=== PATIENT | male | born 1960 | race Hispanic/Latino ===

== ENCOUNTER → 2017-09-04 | Day surgery (SDC) | payer OTHER ==
[~2017-09-04] MED LIST: AMBIEN10 MG PO; BUPIVACAINE HCL 0.5% 10ML MPF VIAL INJ ONE; CEFAZOLIN SOD 1 GM VIAL ONE; CRESTOR10 MG PO; DEXAMETHASONE SOD PHOS INJ 4 MG/ML VIAL ONE; FENTANYL CITRATE/PF 100MCG/2 ML INJ ONE; GLUCOSAMINE1000 MG PO; LIDOCAINE HCL 2% LOCAL INJ 5 ML SDV VIAL INJ ONE; LOSARTAN POTAS100 MG PO; MIDAZOLAM HCL 2 MG/2 ML VIAL ONE; NORCO 7.5-3251 EACH PO; ONDANSETRON HCL INJ 2 MG/ML VIAL ONE; PROPOFOL IV EMULSION 10 MG/ML 20 ML VIAL ONE; SEVOFLURANE INHAL SOLN 250 ML PEN BTL ONE; VIT D3 PO
--- NOTE | 2017-09-04 13:19 | Operative Report ---
DATE OF PROCEDURE: September 04, 2017 PREOPERATIVE DIAGNOSES 1. Hallux rigidus right foot. 2. Heel spur left foot. POSTOPERATIVE DIAGNOSES 1. Hallux rigidus right foot. 2. Heel spur left foot. PLANNED PROCEDURES: 1. Cheilectomy of the right foot. 2. Injection steroid left heel spur. SURGEON: Dr. Neftali GOLDBERG GUIDE DOG MOBILITY INSTRUCTOR: Fela Rogel DPM ANESTHESIA: General with a postoperative block consisting of 10 mL of 0.5% Marcaine plain mixed with 1 mL of dexamethasone phosphate to the right and 1 mL of dexamethasone phosphate to the left. HEMOSTASIS: Pneumatic thigh tourniquet to the right lower extremity set for approximately 30 minutes. ESTIMATED BLOOD LOSS: Less than 10 mL. MATERIAL: 2-0 Vicryl, 3-0 Vicryl, 4-0 Prolene. PATHOLOGY: None. DETAILS OF PROCEDURE: Patient was seen in the preoperative waiting room where the correct procedure and site was identified. The patient was brought to the operating room, placed on the table in supine position. General anesthesia was initiated at this time. A well-padded pneumatic tourniquet was placed about the patient's right thigh. The right foot, ankle, leg was scrubbed, prepped and draped in usual aseptic manner. The right foot, ankle and leg was exsanguinated with an Esmarch bandage and the pneumatic thigh tourniquet was inflated to 350 mmHg for a total time of approximately 30 minutes. Attention was directed to the dorsomedial aspect of the patient's right 1st metatarsophalangeal joint. The incision was carried through the subcutaneous tissue it from deeper underlying structures. All vital neurovascular structures were identified, retracted medially and laterally and all bleeders were cauterized or ligated as deemed necessary. At this time a linear capsulotomy was performed at the level of 1st metatarsophalangeal joint to allow for good visualization. Through the same incision a full lateral release was performed consisting of the deep transverse metatarsal ligament and lateral collateral ligament as well as the fibular sesamoid ligament. The hallux was then put through range of motion and found to be functioning in a more proper anatomic alignment. It should be noted that upon examination of 1st metatarsophalangeal joint a large osteochondral defect was noted to the distal lateral aspect of the right 1st metatarsal head. It was approximately 20% of the metatarsal head. Utilizing a 0.45 K-wire subchondral drilling was performed to promote the growth of fibrocartilage. Next, utilizing a sagittal saw, the dorsal medial and lateral eminences of the 1st metatarsal head were resected, passed off to the back table and the head was shaped to anatomic alignment utilizing an Egg bur. Next, utilizing a sagittal saw the dorsal lip was excised off the base of the proximal phalanx and again smoothed to anatomic alignment utilizing an Egg bur. The wound was then flushed with copious amounts of sterile saline. Capsular deep tissue were reapproximated with 2-0 Vicryl subcutaneous suture with 3-0 Vicryl and the skin was closed using a running interlocking stitch with 4-0 Prolene. The incision site was dressed with Adaptic, 4 x 4s, Kerlix, Michael wrap and a postop shoe. Attention was then directed to the medial plantar aspect of the patient's left heel where administration of a steroid injection was performed under sterile technique to the left heel spur. The incision site was dressed with a Band-aid. Patient tolerated procedure and anesthesia well. Patient was transferred to postoperative recovery unit with vital signs stable and vascular status intact. Patient was monitored there for a short period time before being sent home with follow written instructions: 1. Keep the dressing clean, dry and intact. 2. The patient is to remain partial weightbearing to postop shoe to the right lower extremity to avoid any excessive ambulation until being seen in the office. 3. Patient was given the office number to contact us if any problems arise. Job#: [id number] YESY
== END | disposition home or self-care (01) ==
LOC: OR 05:38
PROVIDERS: ATTEND Podiatrist Foot & Ankle Surgery
DX: M20.21 Hallux rigidus, right foot (principal); M77.32 Calcaneal spur, left foot; I10 Essential (primary) hypertension; R00.1 Bradycardia, unspecified; E78.00 Pure hypercholesterolemia, unspecified; Z01.810 Encounter for preprocedural cardiovascular examination
CPT/HCPCS: 28289; 93005; 96372; J0690; J1100; J2001; J2250; J2405

== ENCOUNTER → 2017-09-27 | Day surgery (SDC) | payer OTHER ==
[~2017-09-27] MED LIST changes: -BUPIVACAINE HCL 0.5% 10ML MPF VIAL INJ ONE; +BUPIVACAINE HCL 0.5% INJ 30 ML VIAL INJ ONE
[2017-09-27 06:07] LABS: BASOPHILS % 0.5 % (0.0-1.0); EOSINOPHILS # (AUTO) 0.1 (0.0-0.4); EOSINOPHILS % 0.9 % (0.0-6.0); HEMATOCRIT 44.6 % (38.2-49.6); HEMOGLOBIN 15.5 g/dL (14.0-18.0); LYMPHOCYTES % 24.9 % (18.0-39.1); MEAN CORPUSCULAR HEMOGLOBIN 30.6 pg (28-32); MEAN CORPUSCULAR HGB CONC 34.8 g/dL (31-35); MEAN CORPUSCULAR VOLUME 88.1 fL (81-99); MONOCYTES # (AUTO) 0.6 (0.2-0.8); NEUTROPHILS # (AUTO) 5.1 (2.1-6.9); NEUTROPHILS % 65.2 % (38.7-80.0); PLATELET COUNT 182 x10e3/uL (140-360); RED BLOOD COUNT 5.06 x10e6/uL (4.3-5.7); RED CELL DISTRIBUTION WIDTH 12.4 % (11.7-14.4)
--- NOTE | 2017-10-02 08:45 | Operative Report ---
DATE OF PROCEDURE: September 27, 2017 PREOPERATIVE DIAGNOSES 1. Right foot sesamoiditis. 2. Left foot heel spur. POSTOPERATIVE DIAGNOSES 1. Right foot sesamoiditis. 2. Left foot heel spur. PLANNED PROCEDURES 1. Excision of right foot sesamoid. 2. Left foot heel spur excision. SURGEON: Dr. Neftali DPM FAMILY SERVICES WORKER: Fela Aguilar DPM ANESTHESIA: General with a postoperative block consisting of 10 mL of 0.5% Marcaine plain mixed with 1 mL of dexamethasone phosphate per foot. ESTIMATED BLOOD LOSS: Less than 10 mL. HEMOSTASIS: Pneumatic thigh tourniquet applied bilaterally for approximately 15 minutes per foot. PATHOLOGY: None. MATERIALS: 3-0 Vicryl, 1 TLS drain, 4-0 Prolene. DETAILS OF PROCEDURE: Patient was seen in the preoperative waiting room where the correct procedure and site was identified. The patient was brought to the operating room and placed on the operating table in the supine position. General anesthesia was initiated at this time. A well-padded pneumatic thigh tourniquet was applied to bilateral lower extremities. Bilateral lower extremities were scrubbed, prepped and draped in the usual aseptic manner. The tourniquet was inflated to the right foot at 350 mmHg for a total time of approximately 15 minutes. PROCEDURE #1: Excision of right foot sesamoid. Attention was directed to the medial aspect of the patient's right 1st metatarsophalangeal joint where a 3.5 cm linear incision was made on the medial aspect of the 1st MPJ slightly plantar. The incision was carried through subcutaneous tissues them from deeper underlying structures. All vital neurovascular structures were identified and retracted dorsally and plantarly, and all bleeders were cauterized or ligated as deemed necessary. A linear capsulotomy was performed at this time to allow for good visualization of the medial sesamoid. Utilizing a sharp 15 blade and Jax, the medial sesamoid was dissected free from all capsular and ligamentous attachments and passed off to the back table. Care was taken to ensure that the flexor hallucis longus tendon was intact. The wound was flushed with copious amounts of sterile saline. Capsule and deep tissue were reapproximated with 2-0 Vicryl, subcutaneous tissue with 3-0 Vicryl and the skin was closed using a running interlocking stitch with 4-0 Prolene. The incision site was then dressed with Adaptic, 4 x 4s, Kerlix, Michael wrap, and a postop shoe. The right foot tourniquet was deflated. The left foot was then exsanguinated with an Esmarch bandage, and a left thigh tourniquet was inflated for approximately 15 minutes. PROCEDURE #2: Left heel spur excision. Attention was directed to the plantar medial aspect of the patient's left heel where a 4 cm linear incision was made. Incision was carried through the subcutaneous tissues them from deeper underlying structures. All vital neurovascular structures were identified and retracted dorsally and plantarly. Utilizing curved Metzenbaum scissors, the plantar fascia was easily identified and was cut approximately one-third to one-half along the plantar aspect of the foot. At this point, the heel spur was easily identified. Utilizing an osteotome and mallet, the majority of the heel spur was resected and passed off to the back table. Next, utilizing a rongeur and a rasp, the bone was smoothed to anatomic alignment and this was confirmed via intraoperative fluoroscopy. The wound was then flushed with copious amounts of sterile saline. Per spice mixer protocol, one TLS drain was placed. Deep tissue was reapproximated with 2-0 Vicryl and subcutaneous tissue with 3-0 Vicryl. The skin was closed using a running interlocking stitch with 4-0 Prolene. Incision site was then dressed with Adaptic, 4 x 4s, Kerlix, Michael wrap, and a postop shoe. The patient tolerated both the procedure and anesthesia well. Patient is transferred to the postoperative recovery room with vital signs stable and vascular status intact. Patient is to remain partial weightbearing to the right lower extremity and nonweightbearing to the left lower extremity until being seen in the office by Dr. Lindsay. Patient was given the office number and instructed to contact us if any problems should arise. DICTATED BY FELA AGUILAR DPM Job#: [id number] STEPHANIE
== END | disposition home or self-care (01) ==
LOC: OR 05:09
PROVIDERS: ATTEND Podiatrist Foot & Ankle Surgery
DX: M77.32 Calcaneal spur, left foot (principal); M25.871 Other specified joint disorders, right ankle and foot; S92.811A Other fracture of right foot, initial encounter for closed fracture; X58.XXXA Exposure to other specified factors, initial encounter; I10 Essential (primary) hypertension; E78.5 Hyperlipidemia, unspecified; E78.00 Pure hypercholesterolemia, unspecified
CPT/HCPCS: 28119; 28315; 36415; 85025; J0690; J1100; J2001; J2250; J2405